=== PATIENT | male | born 1940 | race Caucasian/White ===

== ENCOUNTER 2018-06-12 07:24 | Day surgery (SDC) | payer MEDICARE, OTHER ==
[~2018-06-12 07:24] MED LIST: FENTANYL CITRATE INJ/PF 100 MCG/2 ML AMPUL ONE; KETOROLAC TROMETHAMINE 0.45% 4 DROP/0.4 ML DROPERETTE OS PRN; MIDAZOLAM 2 MG/2 ML INJ ONE
[2018-06-12] MEDS: TETRACAINE HCL 0.5% OPH SOLN 4 ML OS PRN ×3 (07:42→08:14)
[2018-06-12] MEDS: TROPICAMIDE 1% OPH SOLN 3 ML OS PRN ×3 (07:42→08:02)
[2018-06-12] MEDS: BESIFLOXACIN HCL 0.6% OPH SUSP 5 ML BOTTLE OS PRN ×4 (07:42→08:42)
[2018-06-12] MEDS: CYCLOPENTOLATE 0.2%/PHENYLEPHRINE 1% OPH SOLN 2 ML OS PRN ×3 (07:42→08:02)
[2018-06-12] MEDS: CHONDR SU A NA/HYALUR INTRAOC KIT (SURGICARE) ONE ×2 (08:19→08:27)
[2018-06-12] MEDS: LIDOCAINE 1%/PHENYLEPHRINE 1.5% 1 ML VIAL ONE ×2 (08:19→08:27)
[2018-06-12] MEDS: EPINEPHRINE INJ/PF 1 MG/1 ML AMPULE ONE ×2 (08:19→08:27)
--- NOTE | 2018-06-12 21:38 | [facility] OPERATIVE REPORT E ---
[facility] Operative Report NAME: JORGE NORIEGA AGE: 77Y DATE OF SURGERY: 06/12/2018 ROOM: PREOPERATIVE DIAGNOSES: 1. Cataract of the left eye. 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 POSTOPERATIVE DIAGNOSES: 1. Cataract of the left eye. 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 OPERATION: Complex cataract extraction with use of the Malyugin ring due to poor pupillary dilation. LENS: 21.5 diopter SN60WF CDE: 13.49 SURGEON: LEIDY OROZCO M.D. ANESTHESIA: Topical. PROCEDURE: After obtaining appropriate consent, the patient's left eye was prepped and draped in sterile fashion as well as the surgeon in a sterile manner and cataract surgery was started. First a paracentesis blade was used to make a side-port incision. Viscoelastic was used to inflate the anterior chamber. Next a 2.4 mm incision was made with a 2.4 mm blade, clear corneal temporally. A continuous capsulorrhexis was made using a cystotome and Utrata forceps. Following this hydrodissection was carried out to make the lens fully loose and mobile and it was rotated 90 degrees. Following this, a oxwywz-kol-bfqagmq technique was used to phacoemulsify the lens with a CDE of 13.49. The remaining cortex was removed with irrigation/aspiration. Provisc was instilled into the capsular bag to inflate the bag. A SN60WF, 21.5 diopter lens was placed. The remaining viscoelastic material was removed with irrigation/aspiration. Following this, the incision was found to be watertight. Besivance was instilled into the eye and a protective shield was placed over the eye. The patient returned to the postoperative recovery in stable condition. Prior to making the capsulorrhexis, a Malyugin ring was inserted due to poor pupillary dilation. This was removed at the end of the case. DICTATING PHYSICIAN: LEIDY OROZCO M.D. [id number] PHY#: [id number] ID: [id number] JOB#: [id number] ACCT: [id number] cc:LEIDY OROZCO M.D. >
--- NOTE | 2018-06-12 21:48 | [facility] DISCHARGE SUMMARY E ---
[facility] Discharge Summary NAME: JORGE NORIEGA AGE: 77Y ADMITTED: 06/12/2018 DISCHARGED: 06/12/2018 This is a 77-year-old patient who underwent complex cataract extraction of the left eye with use of a Malyugin ring. DIAGNOSES: 1. Cataract left eye. 2. Pupil myosis left eye requiring a Malyugin ring due to dilation of 3 mm. He underwent surgery because he was having difficulty driving at night secondary to glare from headlights. He should be on a regular diet. No bending at the waist and no heavy lifting. He should use his Besivance, Prolensa, and Durezol at 3:00 p.m. and 8:00 p.m. and sleep with a rigid shield. I will see him for his 1-day postop tomorrow. DICTATING PHYSICIAN: LEIDY OROZCO M.D. [id number] PHY#: [id number] ID: [id number] JOB#: [id number] ACCT: [id number] cc:LEIDY OROZCO M.D. >
== END 2018-06-12 09:20 | disposition home or self-care (01) ==
LOC: SC 07:24
PROVIDERS: ATTEND Internal Medicine
DX: H25.813 Combined forms of age-related cataract, bilateral (principal); H57.03 Miosis; H35.363 Drusen (degenerative) of macula, bilateral; H04.123 Dry eye syndrome of bilateral lacrimal glands; H52.4 Presbyopia; I10 Essential (primary) hypertension; E78.00 Pure hypercholesterolemia, unspecified; K21.9 Gastro-esophageal reflux disease without esophagitis; Z87.891 Personal history of nicotine dependence; Z79.899 Other long term (current) drug therapy
CPT/HCPCS: 66982; V2632; J2250; J3490 ×2; A9270; J0171; J3010; J2370

== ENCOUNTER 2019-05-14 11:20 | Emergency (ER) | payer MEDICARE, OTHER ==
--- NOTE | 2019-05-14 11:56 | ER Document Report ---
ED Medical Screen (RME) - General Chief Complaint: Abdominal Pain Stated Complaint: ABDOMINAL PAIN Time Seen by Provider: 05/14/19 11:51 Primary Care Provider: YARELIS ALEXANDRA [Primary Care Provider] - Follow up as needed Notes: Patient is a 78-year-old male with a history of hypertension high cholesterol presents the emergency department with a chief complaint of abdominal pain. Patient reports he had generalized abdominal pain for about 1 month. Patient reports he has been to [facility] and had blood work and a urinalysis performed. He states that they were told this was normal. Patient reports that he does have an appointment with a senior research associate in 2 weeks. He states that they did start him on an antacid medication but this has not helped with the symptoms. Patient denies acid reflux or belching. Patient reports he had 3-4 episodes of clear diarrhea over the past month every day. Patient denies blood in the stool. Patient reports he does not have much of an appetite and no taste. Patient denies urinary symptoms. Patient denies fever. TRAVEL OUTSIDE OF THE [place] IN LAST 30 DAYS: No - Related Data Allergies/Adverse Reactions: No Known Allergies Allergy (Unverified 06/07/18 14:13) Home Medications: Lipitor Past Medical History - Social History Frequency of alcohol use: None Drug Abuse: None - Past Medical History Cardiac Medical History: Reports: Hx Hypertension Denies: Hx Heart Attack Pulmonary Medical History: Denies: Hx Asthma Neurological Medical History: Denies: Hx Cerebrovascular Accident, Hx Seizures GI Medical History: Denies: Hx Hepatitis, Hx Hiatal Hernia, Hx Ulcer Infectious Medical History: Denies: Hx Hepatitis Past Surgical History: Denies: Hx Open Heart Surgery, Hx Pacemaker Physical Exam - Vital signs Vitals: Temp Pulse Resp BP Pulse Ox 98.1 F 89 16 131/65 H 98 05/14/19 11:24 05/14/19 11:24 05/14/19 11:24 05/14/19 11:24 05/14/19 11:24 - Abdominal Inspection: Normal Distension: No distension Bowel sounds: Normal Tenderness: Nontender Organomegaly: No organomegaly Course - Re-evaluation Re-evalutation: 05/14/19 11:56 I have greeted and performed a rapid initial assessment of this patient. A comprehensive ED assessment and evaluation of the patient, analysis of test results and completion of the medical decision making process will be conducted by additional ED providers. - Vital Signs Vital signs: Temp Pulse Resp BP Pulse Ox 98.1 F 89 16 131/65 H 98 05/14/19 11:24 05/14/19 11:24 05/14/19 11:24 05/14/19 11:24 05/14/19 11:24 Doctor's Discharge - Discharge Referrals: LOCALMD,NO [Primary Care Provider] - Follow up as needed
--- NOTE | 2019-05-14 12:44 | ER Document Report ---
ED General - General Chief Complaint: Abdominal Pain Stated Complaint: ABDOMINAL PAIN Time Seen by Provider: 05/14/19 11:51 Primary Care Provider: JOAO MANLEY MD [ACTIVE STAFF] - Follow up as needed LOCAL,YARELIS [NO LOCAL MD] - Follow up as needed Notes: 78-year-old male presents with bilateral lower quad abdominal pain intermittent sometimes rating to back for several months. Intermittent nausea but no vomiti ng. No diarrhea until about yesterday. No blood. No hematemesis. Positive weight loss 20 pounds in a month and a half. Seen at [facility] referred to GI but is not been seen yet. TRAVEL OUTSIDE OF THE [place] IN LAST 30 DAYS: No - Related Data Allergies/Adverse Reactions: No Known Allergies Allergy (Unverified 06/07/18 14:13) Home Medications: Lipitor Past Medical History - General Information source: Patient - Social History Smoking Status: Never Smoker Frequency of alcohol use: None Drug Abuse: None Family History: None Patient has suicidal ideation: No Patient has homicidal ideation: No - Past Medical History Cardiac Medical History: Reports: Hx Hypertension Denies: Hx Heart Attack Pulmonary Medical History: Denies: Hx Asthma Neurological Medical History: Denies: Hx Cerebrovascular Accident, Hx Seizures GI Medical History: Denies: Hx Hepatitis, Hx Hiatal Hernia, Hx Ulcer Infectious Medical History: Denies: Hx Hepatitis Past Surgical History: Denies: Hx Open Heart Surgery, Hx Pacemaker Physical Exam - Vital signs Vitals: Temp Pulse Resp BP Pulse Ox 98.1 F 89 16 131/65 H 98 05/14/19 11:24 05/14/19 11:24 05/14/19 11:24 05/14/19 11:24 05/14/19 11:24 Course - Re-evaluation Re-evalutation: 05/14/19 15:12 Indolent abdominal pain with weight loss. CT shows retroperitoneal mass encasing major vascular structures with possible IVC compression/narrowing. Discussed with radiology. Discussed with Dr. Dan from oncology. The patient's bilirubin is normal no evidence of biliary obstruction or acute pain intolerance. He can be seen in the office today per Dr. Mccauley and I will send him straight there to initiate outpatient treatment of likely cancer. I have discussed with the patient there likely diagnosis, aftercare plan, follow-up plans and my usual and customary return precautions. They verbalized understanding of this. - Vital Signs Vital signs: Temp Pulse Resp BP Pulse Ox 97.5 F 75 18 164/98 H 99 05/14/19 14:40 05/14/19 14:40 05/14/19 14:40 05/14/19 14:40 05/14/19 14:40 - Laboratory Result Diagrams: 05/14/19 12:10 05/14/19 12:10 Laboratory results interpreted by me: 05/14/19 05/14/19 05/14/19 12:10 12:10 12:10 RDW 14.1 H Lymph % (Auto) 9.2 L Carbon Dioxide 31 H Est GFR (MDRD) Non-Af 56 L Glucose 120 H Calcium 10.7 H Urine Protein >=500 H - Diagnostic Test Radiology reviewed: Image reviewed, Reports reviewed Discharge - Discharge Clinical Impression: Abdominal mass Qualifiers: Abdominal location: generalized Qualified Code(s): R19.07 - Generalized intra-abdominal and pelvic swelling, mass and lump Condition: Good Disposition: HOME, SELF-CARE Additional Instructions: You have been diagnosed with a tumor in your abdomen. It could be from your pancreas, or somewhere else. It is extremely important that you make contact with the oncologist. They have offered to see you in the office this afternoon. Please proceed directly from the ER to Dr. Kannan Rubin's office. Please return to the ER anytime for vomiting yellowing of the skin generalized weakness or worsening abdominal pain. Referrals: NASRIN,NO [NO LOCAL MD] - Follow up as needed JOAO MANLEY MD [ACTIVE STAFF] - Follow up as needed
[2019-05-14 12:49] LABS: ABSOLUTE BASOPHILS # (AUTO) 0.1 10^3/uL (0.0-0.2); ABSOLUTE EOSINOPHILS # (AUTO) 0.2 10^3/uL (0.0-0.6); ABSOLUTE LYMPHOCYTES (AUTO) 0.8 10^3/uL (0.5-4.7); ABSOLUTE MONOCYTES (AUTO) 0.9 10^3/uL (0.1-1.4); ABSOLUTE NEUT (AUTO) 6.2 10^3/uL (1.7-8.2); BASOPHILS % (AUTO) 1.1 % (0-2); HEMOGLOBIN 14.6 g/dL (13.5-17.0); LYMPHOCYTES % (AUTO) 9.2 % (13-45); MEAN CORPUSCULAR HEMOGLOBIN 30.9 pg (27.0-33.4); MEAN CORPUSCULAR HGB CONC 33.9 g/dL (32.0-36.0); MEAN CORPUSCULAR VOLUME 91 fl (80-97); MONOCYTES % (AUTO) 11.5 % (3-13); PLATELET COUNT 158 10^3/uL (150-450); RED BLOOD COUNT 4.72 10^6/uL (4.35-5.55); RED CELL DISTRIBUTION WIDTH 14.1 % (11.5-14.0); SEGMENTED NEUTROPHILS % (AUTO) 75.2 % (42-78); TOTAL CELLS COUNTED % (AUTO) 100 %; WHITE BLOOD COUNT 8.2 10^3/uL (4.0-10.5)
[2019-05-14 12:53] LABS: APPEARANCE,URINE SLIGHTLY-CLOUDY; BILIRUBIN,URINE NEGATIVE (NEGATIVE); COLOR,URINE YELLOW; GLUCOSE, URINE NEGATIVE (NEGATIVE); KETONES,URINE NEGATIVE (NEGATIVE); LEUKOCYTE ESTERASE,URINE NEGATIVE (NEGATIVE); NITRITE,URINE NEGATIVE (NEGATIVE); PROTEIN,URINE >=500 mg/dL (NEGATIVE); URINE SPECIFIC GRAVITY 1.016; UROBILINOGEN,URINE NEGATIVE mg/dL (<2.0)
[2019-05-14 13:02] LABS: ALBUMIN 4.5 g/dL (3.5-5.0); ALKALINE PHOSPHATASE 74 U/L (38-126); ANION GAP 9 (5-19); ASPARTATE AMINO TRANSFERASE 19 U/L (17-59); BILIRUBIN,DIRECT 0.3 mg/dL (0.0-0.4); BILIRUBIN,TOTAL 0.7 mg/dL (0.2-1.3); BLOOD UREA NITROGEN 14 mg/dL (7-20); CALCIUM 10.7 mg/dL (8.4-10.2); CARBON DIOXIDE 31 mmol/L (22-30); CHLORIDE 98 mmol/L (98-107); GLUCOSE 120 mg/dL (75-110); POTASSIUM 4.5 mmol/L (3.6-5.0); TOTAL PROTEIN 8.2 g/dL (6.3-8.2)
--- NOTE | 2019-05-14 14:29 | RADIOLOGY REPORT (SQ) ---
EXAM DESCRIPTION: CT ABD/PELVIS WITH IV ONLY COMPLETED DATE/TIME: 05/14/2019 1:43 pm REASON FOR STUDY: Dante pain and weight loss COMPARISON: None. TECHNIQUE: CT scan of the abdomen and pelvis performed using helical scanning technique with dynamic intravenous contrast injection. No oral contrast. Images reviewed with lung, soft tissue, and bone windows. Reconstructed coronal and sagittal MPR images reviewed. Delayed images for evaluation of the urinary system also acquired. All images stored on PACS. All CT scanners at this facility use dose modulation, iterative reconstruction, and/or weight based d osing when appropriate to reduce radiation dose to as low as reasonably achievable (ALARA). [facility]: Dose Right [facility]: CareDose [facility]: Dose Right [facility]: Teradose 4D [facility]: [facility] CONTRAST TYPE AND DOSE: contrast/concentration: Isovue 350.00 mg/ml; Total Contrast Delivered: 86.0 ml; Total Saline Delivered: 69.0 ml RENAL FUNCTION: Creatinine 1.25 RADIATION DOSE: CT Rad equipment meets quality standard of care and radiation dose reduction techniq ues were employed. CTDIvol: 4.8 - 4.8 mGy. DLP: 512 mGy-cm.. LIMITATIONS: None. FINDINGS: LOWER CHEST: No significant findings. No nodules or infiltrates. LIVER: There is a wedge-shaped area of relative hypoattenuation involving segment 4 measuring approxi mately 3.2 by 5.5 cm (series 2, image 15). Findings are favored to represent a perfusional defect al though lesion is not entirely excluded. No additional discrete hepatic masses. No intrahepatic duct al dilation. SPLEEN: Normal size. No focal lesions. PANCREAS: There is irregular soft tissue mass involving the right retroperitoneal and abutting the pa ncreatic head and uncinate process for and measuring approximately 12.7 x 10.8 cm (series 2, image 28 ). This lesion abuts the right renal hilum and encases the aorta, IVC celiac and SMA axis. GALLBLADDER: No identified stones by CT criteria. No inflammatory changes to suggest cholecystitis. ADRENAL GLANDS: No significant masses or asymmetry. RIGHT KIDNEY AND URETER: Solid mass 2 extending to the right renal hilum as detailed above. There is encasement of the renal artery and vein. No additional solid renal parenchymal masses. No hydron ephrosis or hydroureter. LEFT KIDNEY AND URETER: No solid masses. No significant calcifications. No hydronephrosis or hydr oureter. AORTA AND VESSELS: Soft tissue mass involving and surrounding the upper abdominal aorta, celiac, SMA and bilateral renal arteries. The mass causes high-grade narrowing of the inferior vena cava at the level of the renal veins. There is poor opacification of the iliac veins possibly secondary to contr ast timing although DVT is not excluded. Additional aortoiliac atherosclerosis without aneurysm. RETROPERITONEUM: Large retroperitoneal soft tissue upper abdominal mass as detailed above. BOWEL AND PERITONEAL CAVITY: No evidence of intestinal obstruction. Upper abdominal retroperitoneal soft tissue mass as above. Point of origin is not clearly delineated but likely pancreas. No additi onal focal bowel wall thickening. Scattered colonic diverticula. APPENDIX: Normal. PELVIS: No mass. No free fluid. Normal bladder. ABDOMINAL WALL: No masses. No hernias. BONES: No acute bony abnormality. No discrete lytic or blastic osseous lesions. OTHER: No other significant finding. IMPRESSION: 1. Large irregular retroperitoneal upper abdominal mass measuring approximately 12.7 x 10.8 cm. Favored organ of origin is the pancreas although the mass abuts the right renal hilum, prox imal small bowel and great vessels. There is encasement of the aorta, celiac, SMA and bilateral yaw l arteries. 2. 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 There is poor opacification of the iliac veins, possibly secondary to contrast timing although DVT is not excluded. Lower extremity duplex could be considered for further evaluation. 3. Wedge-shaped area of hypoattenuation involving the liver measuring approximately 5.5 x 3.2 cm. L esion favored to be a perfusion defect although metastatic disease is not entirely excluded. Findings discussed with Dr. Montes at 1422 hours on 05/14/2019. TECHNICAL DOCUMENTATION: JOB ID: [id number] Quality ID # [id number]: Final reports with documentation of one or more dose reduction techniques (e.g., Au tomated exposure control, adjustment of the mA and/or kV according to patient size, use of iterative reconstruction technique) 2010 [employer]- All Rights Reserved Reading location - IP/workstation name: [email or web address]
[2019-05-14 14:45] VITALS: BP 164/98
== END 2019-05-14 14:42 | disposition home or self-care (01) ==
LOC: ER 11:20
DX: R19.07 Generalized intra-abdominal and pelvic swelling, mass and lump (principal); R10.31 Right lower quadrant pain; R10.32 Left lower quadrant pain; R11.0 Nausea; R19.7 Diarrhea, unspecified; R63.4 Abnormal weight loss; I10 Essential (primary) hypertension; Z79.899 Other long term (current) drug therapy
CPT/HCPCS: 36415; 74177; 80053; 81001; 83690; 85025; 86301; 99284

== ENCOUNTER → 2019-05-29 | Outpatient (CLI) | payer MEDICARE, OTHER ==
--- NOTE | 2019-05-30 08:32 | RADIOLOGY REPORT (SQ) ---
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 TECHNIQUE: Blood glucose level was verified. Above dose of FDG was injected intravenously. 2-D seg mented attenuation correction images were obtained from the base of the skull to the midthighs. Nonc ontrast CT images were obtained for attenuation correction and fusion with emission images. CT image s were performed without oral or intravenous contrast and are not sensitive for parenchymal lesions. A series of overlapping emission PET images were obtained. Images reviewed and manipulated at [facility] work station by the radiologist. Images stored on PACS. LIMITATIONS: None. FINDINGS: HEAD AND NECK: No areas of abnormal metabolic activity in the soft tissues of the head and neck. CHEST: No areas of abnormal metabolic activity in the chest. ABDOMEN AND PELVIS: There is abnormal uptake in the large jason hepatis and retroperitoneal mass. ALEJO V is greater than 7 consistent with neoplasm. No abnormal uptake in the liver. Focal uptake in the pelvis is consistent with bladder activity. PROXIMAL LOWER EXTREMITIES: No areas of abnormal metabolic activity in the soft tissues of the lower extremities. BONES: No abnormal metabolic activity in the visualized skeleton. ADDITIONAL CT FINDINGS: No additional significant findings on the noncontrast CT images. OTHER: No other significant findings. IMPRESSION: Abnormal uptake in the large jason hepatis and retroperitoneal mass. No distant metasta sis. SUV is greater than 7 consistent with neoplasm. TECHNICAL DOCUMENTATION: JOB ID: [id number] [employer]- All Rights Reserved Reading location - IP/workstation name: [email or web address]
== END ==
LOC: RAD 08:37
PROVIDERS: ATTEND Internal Medicine
DX: C25.1 Malignant neoplasm of body of pancreas (principal)
CPT/HCPCS: 78815; A9552

== ENCOUNTER 2019-06-06 12:08 | Emergency (ER) | payer MEDICARE, OTHER ==
[2019-06-06] MEDS ORDERED: ONDANSETRON HCL INJ/PF 4 MG/2 ML SDV IV ONE ×2 (12:18→15:09)
[2019-06-06] MEDS ORDERED: NORMAL SALINE 500 ML IV ONE ×2 (12:18→15:10)
--- NOTE | 2019-06-06 12:18 | ER Document Report ---
ED Medical Screen (RME) - General Chief Complaint: Dizziness Stated Complaint: DIZZINESS Time Seen by Provider: 06/06/19 12:17 Primary Care Provider: JOAO MANLEY MD [Primary Care Provider] - Follow up as needed Mode of Arrival: Wheelchair Information source: Patient Notes: 78-year-old male presented to ED for nausea vomiting unable to keep any food or fluid down dizziness and lightheaded since 08 April. He has been recently diagnosed with pancreatic cancer and not started treatments as yet. He is alert oriented respirations regular nonlabored speaking in full sentences. I have greeted and performed a rapid initial assessment of this patient. A comprehensive ED assessment and evaluation of the patient, analysis of test results and completion of medical decision making process will be conducted by an additional ED providers. TRAVEL OUTSIDE OF THE [place] IN LAST 30 DAYS: No - Related Data Allergies/Adverse Reactions: No Known Allergies Allergy (Unverified 06/07/18 14:13) Past Medical History - Past Medical History Cardiac Medical History: Reports: Hx Hypercholesterolemia, Hx Hypertension Denies: Hx Heart Attack Pulmonary Medical History: Denies: Hx Asthma Neurological Medical History: Denies: Hx Cerebrovascular Accident, Hx Seizures GI Medical History: Denies: Hx Hepatitis, Hx Hiatal Hernia, Hx Ulcer Infectious Medical History: Denies: Hx Hepatitis Past Surgical History: Denies: Hx Open Heart Surgery, Hx Pacemaker Physical Exam - Vital signs Vitals: Temp Pulse Resp BP Pulse Ox 97.5 F 94 18 122/59 L 98 06/06/19 12:14 06/06/19 12:14 06/06/19 12:14 06/06/19 12:14 06/06/19 12:14 Course - Vital Signs Vital signs: Temp Pulse Resp BP Pulse Ox 97.5 F 94 18 122/59 L 98 06/06/19 12:14 06/06/19 12:14 06/06/19 12:14 06/06/19 12:14 06/06/19 12:14 Doctor's Discharge - Discharge Referrals: JOAO MANLEY MD [Primary Care Provider] - Follow up as needed
[2019-06-06] MEDS ORDERED: MORPHINE SULFATE 10 MG/ML INJ IV ONE ×2 (12:19→19:45)
[2019-06-06 13:17] LABS: ABSOLUTE BASOPHILS # (AUTO) 0.1 10^3/uL (0.0-0.2); ABSOLUTE EOSINOPHILS # (AUTO) 0.1 10^3/uL (0.0-0.6); ABSOLUTE LYMPHOCYTES (AUTO) 0.6 10^3/uL (0.5-4.7); ABSOLUTE MONOCYTES (AUTO) 0.6 10^3/uL (0.1-1.4); ABSOLUTE NEUT (AUTO) 6.4 10^3/uL (1.7-8.2); EOSINOPHILS % (AUTO) 1.1 % (0-6); HEMATOCRIT 37.1 % (37.9-51.0); HEMOGLOBIN 12.8 g/dL (13.5-17.0); MEAN CORPUSCULAR HEMOGLOBIN 30.7 pg (27.0-33.4); MEAN CORPUSCULAR HGB CONC 34.6 g/dL (32.0-36.0); MEAN CORPUSCULAR VOLUME 89 fl (80-97); MONOCYTES % (AUTO) 8.1 % (3-13); PLATELET COUNT 160 10^3/uL (150-450); RED BLOOD COUNT 4.19 10^6/uL (4.35-5.55); RED CELL DISTRIBUTION WIDTH 13.4 % (11.5-14.0); SEGMENTED NEUTROPHILS % (AUTO) 81.8 % (42-78); TOTAL CELLS COUNTED % (AUTO) 100 %; WHITE BLOOD COUNT 7.8 10^3/uL (4.0-10.5)
[2019-06-06 13:23] LABS: APPEARANCE,URINE CLEAR; BILIRUBIN,URINE NEGATIVE (NEGATIVE); COLOR,URINE YELLOW; GLUCOSE, URINE NEGATIVE (NEGATIVE); KETONES,URINE TRACE mg/dL (NEGATIVE); PROTEIN,URINE 100 mg/dL (NEGATIVE); URINE SPECIFIC GRAVITY 1.011
[2019-06-06 13:33] LABS: ALKALINE PHOSPHATASE 125 U/L (38-126); ANION GAP 16 (5-19); ASPARTATE AMINO TRANSFERASE 39 U/L (17-59); BILIRUBIN,DIRECT 0.3 mg/dL (0.0-0.4); BILIRUBIN,TOTAL 0.9 mg/dL (0.2-1.3); BLOOD UREA NITROGEN 14 mg/dL (7-20); CALCIUM 10.3 mg/dL (8.4-10.2); CARBON DIOXIDE 24 mmol/L (22-30); CHLORIDE 98 mmol/L (98-107); GLUCOSE 117 mg/dL (75-110); TOTAL PROTEIN 7.5 g/dL (6.3-8.2)
--- NOTE | 2019-06-06 14:58 | ER Document Report ---
ED Dizziness/Weakness - General Chief Complaint: Nausea Stated Complaint: DIZZINESS Time Seen by Provider: 06/06/19 12:17 Primary Care Provider: JOAO MANLEY MD [Primary Care Provider] - Follow up as needed Mode of Arrival: Wheelchair Notes: Patient is a 78-year-old male with a history of acid reflux, hypertension and recent diagnosis of pancreatic cancer who presents to the emergency department with a chief complaint of dizziness. Patient reports over the past 3 weeks he has had issues keeping food and fluid down. Patient reports he was seen at Dr. Manley's office last Tuesday for IV fluids and had an increase in his pain medication. Patient reports he does currently take oxycodone 10 mg every 6 hours as needed for pain. Patient reports he has had decreased appetite, nausea and weight loss over the past 3 weeks. He reports his last bowel movement was 5 days ago. Patient reports he did initiate a stool softener. Patient reports he feels a constant ache in his left upper quadrant. Patient reports he feels like he is dehydrated. Patient denies fever. Patient reports he is supposed to start treatment for his pancreatic cancer this upcoming Tuesday. He states he d id call his doctor's office this morning and was told he could come at 2 PM for IV hydration but decided to come to the emergency department instead. TRAVEL OUTSIDE OF THE [place] IN LAST 30 DAYS: No - Related Data Allergies/Adverse Reactions: No Known Allergies Allergy (Verified 06/06/19 12:17) Past Medical History - General Information source: Patient - Social History Smoking Status: Former Smoker Chew tobacco use (# tins/day): No Frequency of alcohol use: Rare Lives with: Family Family History: None Patient has suicidal ideation: No Patient has homicidal ideation: No - Past Medical History Cardiac Medical History: Reports: Hx Hypercholesterolemia, Hx Hypertension Denies: Hx Heart Attack Pulmonary Medical History: Reports: None Denies: Hx Asthma EENT Medical History: Reports: None Neurological Medical History: Reports: None. Denies: Hx Cerebrovascular Accident, Hx Seizures Endocrine Medical History: Reports: None Renal/ Medical History: Reports: None Malignancy Medical History: Reports Hx Pancreatic Cancer - Not currently on treatment. GI Medical History: Reports: None. Denies: Hx Hepatitis, Hx Hiatal Hernia, Hx Ulcer Musculoskeletal Medical History: Reports None Skin Medical History: Reports None Psychiatric Medical History: Reports: None Traumatic Medical History: Reports: None Infectious Medical History: Reports: None. Denies: Hx Hepatitis Past Surgical History: Denies: Hx Open Heart Surgery, Hx Pacemaker Review of Systems - Review of Systems Constitutional: See HPI EENT: No symptoms reported Cardiovascular: See HPI Respiratory: No symptoms reported Gastrointestinal: See HPI Genitourinary: No symptoms reported Male Genitourinary: No symptoms reported Musculoskeletal: No symptoms reported Skin: No symptoms reported Hematologic/Lymphatic: No symptoms reported Neurological/Psychological: No symptoms reported Physical Exam - Vital signs Vitals: Temp Pulse Resp BP Pulse Ox 97.5 F 94 18 122/59 L 98 06/06/19 12:14 06/06/19 12:14 06/06/19 12:14 06/06/19 12:14 06/06/19 12:14 Interpretation: Normal - Notes Notes: GENERAL: Well-appearing, well-nourished and in no acute distress. HEAD: Atraumatic, normocephalic. EYES: Pupils equal round and reactive to light, extraocular movements intact, sclera anicteric, conjunctiva are normal. ENT: Nares patent, oropharynx clear without exudates. Moist mucous membranes. NECK: Normal range of motion, supple without lymphadenopathy or JVD. LUNGS: Breath sounds clear to auscultation bilaterally and equal. No wheezes rales or rhonchi. HEART: Regular rate and rhythm without murmurs, rubs or gallops. ABDOMEN: Soft, mild tenderness in left upper quadrant, hyperactive bowel sounds. No guarding, no rebound. No masses appreciated. BACK: No cervical, thoracic, lumbar midline tenderness. No saddle anesthesia, normal distal neurovascular exam. GENITOURINARY: Deferred. EXTREMITIES: Normal range of motion, no pitting or edema. No clubbing or cyanosis. NEUROLOGICAL: Cranial nerves II through XII grossly intact. Normal speech, normal gait. PSYCH: Normal mood, normal affect. SKIN: Warm, Dry, normal turgor, no rashes or lesions noted. Course - Re-evaluation Re-evalutation: 06/06/19 14:57 Upon initial examination patient is resting comfortably on stretcher, nontoxic appearing in no acute distress. Patient has received IV fluids as well as a dose of IV morphine 5 mg. Patient reports this did help with his discomfort. Patient not currently have any nausea or vomiting. Patient reports over the past 3 weeks he has had a decrease in appetite, weight loss and inability to tolerate liquids or food. Patient reports he was seen by his oncologist last Eddie to receive IV fluids. Reports dizziness as he feels like he is extremely dehydrated. 06/06/19 14:58 I did speak with Dr. Manley. He does recommend obtaining a CT of the abdomen with oral contrast only. He states that the patient does have a recent diagnosis of pancreatic cancer and possible concern for gastric outlet ob struction. I did update the family as well as the patient in regards to the additional testing that is ordered and recommended by his oncologist. They verbalized understanding. Will give dose of antinausea medication. 06/06/19 16:55 Patient is tolerating oral contrast and has not vomited. Patient denies pain or nausea. Family is at bedside. 06/06/19 18:54 Patient was able to tolerate oral contrast without vomiting, CT results were called to Dr. Manley including the impression. He would like me to call the radiologist to verify that the oral contrast did pass through the stomach and duodenum to rule out gastric outlet obstruction. If the oral contrast did pass through, he does recommend 2nd liter of IVF's for hydration and discharging the patient home on anti-nausea medication and strict return precautions. 06/06/19 19:03 I did attempt to speak with radiologist. No answer. Will call back. 06/06/19 19:30 I did attempt to speak with radiologist once again. No answer. 06/06/19 19:58 I did speak with Dr. Vines to verify that the oral contrast did go past the stomach. This study was done 2 hours ago and the patient has not vomited. He states that there do not appear to be any issue with the oral contrast. I also did mention the distended gallbladder if there was any concern or mention of pericholecystic fluid or infection. He states that this would have been me ntioned and that this could be distended as the patient has not had anything to eat. I did discuss the results with the patient and family. Plan is to give IV dose of pain medication, IV fluids per Dr. Manley and to discharge with anti- nausea medication Phenergan and Zofran as recommended by Dr. Manley. Patient to follow-up with his oncologist tomorrow. 06/06/19 20:19 Patient did ambulate to the restroom and reports urinating. Patient in no acute distress. Patient and family in agreement with discharge instructions. - Vital Signs Vital signs: Temp Pulse Resp BP Pulse Ox 97.5 F 94 20 181/79 H 97 06/06/19 12:14 06/06/19 12:14 06/06/19 19:00 06/06/19 17:31 06/06/19 19:00 - Laboratory Result Diagrams: 06/06/19 12:53 06/06/19 12:53 Laboratory results interpreted by me: 06/06/19 06/06/19 06/06/19 12:53 12:53 12:53 RBC 4.19 L Hgb 12.8 L Hct 37.1 L Lymph % (Auto) 8.0 L Seg Neutrophils % 81.8 H Est GFR (MDRD) Non-Af 57 L Glucose 117 H Calcium 10.3 H Urine Protein 100 H Urine Ketones TRACE H Urine Urobilinogen 2.0 H - Diagnostic Test Radiology reviewed: Reports reviewed Radiology results interpreted by me: 06/06/19 20:01 Abdomen/Pelvis CT 06/06/19 15:09 IMPRESSION: Large pancreatic mass is once again seen. There is diverticulosis coli. No acute findings are seen in the abdomen or pelvis. No explanation for the patient's left upper quadrant pain. Discharge - Discharge Clinical Impression: Pancreatic cancer Qualifiers: Pancreatic malignancy location: unspecified Qualified Code(s): C25.9 - Malignant neoplasm of pancreas, unspecified Nausea and vomiting Qualifiers: Vomiting type: unspecified Vomiting Intractability: non-intractable Qualified Code(s): R11.2 - Nausea with vomiting, unspecified Condition: Stable Disposition: HOME, SELF-CARE Additional Instructions: Today was seen in the emergency department for nausea and vomiting. You were recently diagnosed with pancreatic cancer. I did speak with your oncologist and we did obtain a CT of the abdomen with oral contrast. There did not appear to be any new concern or signs of a blockage. The nausea and vomiting could be due to the cancer and the pancreatic mass. Your oncologist did recommend adequate IV fluid which she did receive here in the emergency department and discharging you home with antinausea medications. You will be prescribed Phenergan and Zofran. Please follow-up with your oncologist tomorrow. Please continue taking your oxycodone 10 mg every 6 hours as previously prescribed. Take the nausea medication and start out with a clear liquid diet. You can attempt to drink Ensure beverages. Avoid heavy or greasy foods. If you are unable to tolerate liquids and continue to vomit while at home please return to the emergency department. Abdominal Pain There are many causes of abdominal pain. Pain can mean a serious problem requiring surgery (such as appendicitis). It can also be an innocent problem that goes away on its own (such as a viral infection). Often, time must pass to determine the cause of pain. The physician does not feel that hospitalization is necessary, at present. Things may change within the next 24 hours. Call the doctor or come back for re-examination if any problems occur, such as: (1) Pain that becomes more severe, steady, or becomes concentrated in one specific area. Also, pain that is more severe with movement or coughing. (2) Vomiting that persists or becomes more frequent. (3) Blood in the vomitus, urine, or bowel movements. Blood in the stool may have a tarry or black appearance. (4) Shaking chills or fever greater than 100 degrees F. (5) The abdomen becomes more distended or swollen. (6) Bowel movements cease. (7) Failure to improve as expected. Prescriptions: Promethazine HCl [Phenergan 25 mg Tablet] 1 tab PO Q6H PRN #15 tablet PRN Reason: Ondansetron [Zofran Odt 4 mg Tablet] 1 tab PO Q4H PRN #15 tab.rapdis PRN Reason: For Nausea/Vomiting Referrals: JOAO MANLEY MD [Primary Care Provider] - Follow up as needed
--- NOTE | 2019-06-06 18:45 | RADIOLOGY REPORT (SQ) ---
EXAM DESCRIPTION: CT ABD/PELVIS ORAL ONLY COMPLETED DATE/TIME: 06/06/2019 6:06 pm REASON FOR STUDY: hx. pancreatic CA, luq pain COMPARISON: None. TECHNIQUE: CT scan of the abdomen and pelvis performed without intravenous contrast. Oral contrast. Images reviewed with lung, soft tissue, and bone windows. Reconstructed coronal and sagittal MPR zach ges reviewed. All images stored on PACS. All CT scanners at this facility use dose modulation, iterative reconstruction, and/or weight based d osing when appropriate to reduce radiation dose to as low as reasonably achievable (ALARA). [facility]: Dose Right [facility]: CareDose [facility]: Dose Right [facility]: Teradose 4D [facility]: Smart [employer] RADIATION DOSE: CT Rad equipment meets quality standard of care and radiation dose reduction techniq ues were employed. CTDIvol: 6.9 mGy. DLP: 393 mGy-cm.mGy. LIMITATIONS: None. FINDINGS: LOWER CHEST: No significant findings. No nodules or infiltrates. NON-CONTRASTED LIVER, SPLEEN, ADRENALS: Evaluation limited by lack of IV contrast. No identified sign ificant masses. PANCREAS: Large mass arising from the head of the pancreas is once again seen. There is extends to t he right renal hilum and surrounds the aorta and IVC and the superior mesenteric artery and the origi ns of the renal arteries. GALLBLADDER: Distended. No stones. RIGHT KIDNEY AND URETER: The large pancreatic mass extends to the renal hilum. There appears to be m ild hydronephrosis. No calculi. LEFT KIDNEY AND URETER: No suspicious masses. Assessment limited by lack of IV contrast. No signifi cant calcifications. No hydronephrosis or hydroureter. AORTA AND RETROPERITONEUM: No aneurysm. The aorta is surrounded by the pancreatic mass. BOWEL AND PERITONEAL CAVITY: Mild sigmoid diverticulosis. No acute inflammatory changes are apprecia chantal. APPENDIX: Not identified. PELVIS, BLADDER, AND ABDOMINAL WALL:No abnormal masses. No free fluid. Bladder normal. BONES: No significant findings. OTHER: No other significant finding. IMPRESSION: Large pancreatic mass is once again seen. There is diverticulosis coli. No acute findi ngs are seen in the abdomen or pelvis. No explanation for the patient's left upper quadrant pain. COMMENT: Quality ID # [id number]: Final reports with documentation of one or more dose reduction techniques (e.g., Automated exposure control, adjustment of the mA and/or kV according to patient size, use of iterative reconstruction technique) TECHNICAL DOCUMENTATION: JOB ID: [id number] [employer]- All Rights Reserved Reading location - IP/workstation name: [email or web address]
[2019-06-06] MEDS ORDERED: ONDANSETRON ODT 4 MG TAB (6 TAB/ER DISP) PO PRN ×2 (20:04→21:06)
[2019-06-06 21:00] VITALS: BP 173/77
== END 2019-06-06 21:00 | disposition home or self-care (01) ==
LOC: ER 12:08
DX: C25.9 Malignant neoplasm of pancreas, unspecified (principal); R11.2 Nausea with vomiting, unspecified; R42 Dizziness and giddiness; I10 Essential (primary) hypertension; Z79.899 Other long term (current) drug therapy; Z87.891 Personal history of nicotine dependence
CPT/HCPCS: 96376; 99284; 96361; 96374; 96375; 36415; 83690; 85025; 80053; 81001; 74176; J2270; J2405; J7040; A9270